=== PATIENT | female | born 1970 | race Caucasian/White ===

== ENCOUNTER → 2017-02-27 | Outpatient (REF) | payer MEDICAID ==
[~2017-02-27] MED LIST: ALBU8.5H11 INH; ASP325 PO; ASPI-760 PO; CET10 PO; CLIN300C99 PO; CLON1 PO; FLEC100T21 PO; FLEC150T14 PO; IBUP600T22 PO; LEVO150T72 PO; LEVO5TAB28 PO; LEVO75TA68 PO; LIOT25TA PO; MAG400 PO; MAGN250T25 PO; MET500 PO; OMEG-97 PO; SIM80 PO; [UNRECOGNIZED DRUG - CODE] PO
== END ==
LOC: ZZSENDIN 17:00
PROVIDERS: ATTEND Physician Assistant
DX: E03.9 Hypothyroidism, unspecified (principal)
CPT/HCPCS: 84436; 84439; 84443

== ENCOUNTER → 2017-08-05 | Outpatient (REF) | payer OTHER | LOC: ZZSENDIN 16:48 | PROVIDERS: ATTEND Physician Assistant | DX: Z11.59 Encounter for screening for other viral diseases (principal) | CPT/HCPCS: 80074; 86703 ==

== ENCOUNTER → 2017-12-15 | Outpatient (CLI) | payer MEDICAID ==
[2017-12-15 14:35] LABS: LDL CHOLESTEROL 109 mg/dl
== END ==
LOC: LAB 13:58
PROVIDERS: ATTEND Internal Medicine Cardiovascular Disease
DX: I48.0 Paroxysmal atrial fibrillation (principal); I10 Essential (primary) hypertension
CPT/HCPCS: 36415; 82040; 82247; 82310; 82374; 82435; 82465; 82565; 82947; 83718; 84075; 84132; 84155; 84295; 84450; 84460; 84478; 84520

== ENCOUNTER → 2018-04-26 | Outpatient (CLI) | payer MEDICAID ==
--- NOTE | 2018-04-26 17:39 | RADIOLOGY IMAGING REPORT ---
FACILITY: [facility] [place] PATIENT NAME: Usha Kiser : 1970 MR: [id number] V: [id number] EXAM DATE: ORDERING PHYSICIAN: CHRISTOPHER COLEY TECHNOLOGIST: Location: [facility] Patient: Usha Kiser : 1970 Visit/Account:[id number] Date of Sevice: 04/26/2018 THYROID HISTORY: Hypothyroidism COMPARISON: May 30, 2008 FINDINGS: SIZE: Right lobe: 5 x 1.6 x 1.6 cm Left lobe: 5 x 1 x 1.3 cm Isthmus: 4 mm PARENCHYMA: Heterogeneous NODULES: Right lobe: * None discrete. Left lobe: * None discrete. Isthmus: * None discrete. VASCULARITY: Within normal limits. ADDITIONAL FINDINGS: None. IMPRESSION: Thyroid gland appears mildly heterogeneous however discrete nodules are not demonstrated REFERENCE: 2015 [place] [employer] Management Guidelines for Adult Patients with Thyroid Nodules and D ifferentiated Thyroid Cancer: The [place] [employer] Guidelines Task Force on Thyroid Nodul es and Differentiated Thyroid Cancer. SONOGRAPHIC PATTERNS: * Benign: Purely cystic nodules (no solid component); estimated risk of malignancy <1 percent; no bi opsy recommended. * Very Low Suspicion: Spongiform or partially cystic nodules without any of the sonographic features described in low, intermediate, or high suspicion patterns; estimated risk of malignancy <3 percent; consider FNA at > 2 cm (Observation without FNA is also a reasonable option). * Low Suspicion: Isoechoic or hyperechoic solid nodule, or partially cystic nodule with eccentric so lid areas, without microcalcification, irregular margin or ETE (extra-thyroidal extension), or taller than wide shape; estimated risk of malignancy 5-10 percent; recommend FNA at >1.5 cm. * Intermediate Suspicion: Hypoechoic solid nodule with smooth margins without microcalcifications, E TE (extra-thyroidal extension), or taller than wide shape; estimated risk of malignancy 10-20 percent ; recommend FNA at > 1 cm. * High Suspicion: Solid hypoechoic nodule or solid hypoechoic component of a partially cystic nodule with one or more of the following features: irregular margins (infiltrative, microlobulated), microc alcifications, taller than wide shape, rim calcifications with small extrusive soft tissue component, evidence of ETE (extra-thyroidal extension); estimated risk of malignancy >70-90 percent; recommend FNA at > 1 cm. NOTES: * Although a sonographically suspicious subcentimeter thyroid nodule without evidence of extrathyroi jaden extension or sonographically suspicious lymph nodes may be observed with close sonographic follow -up rather than pursuing immediate FNA, patient age and preference may modify decision-making. A > 50% interval increase in nodule volume and/or development of new suspicious sonographic features are felt to be a valid reasons for potential re-aspiration of a nodule previously shown to have benig n FNA cytology. Report Dictated By: Marge Irving MD at 04/26/2018 5:34 PM Report E-Signed By: Marge Irving MD at 04/26/2018 5:35 PM WSN:[place]
--- NOTE | 2018-04-26 17:56 | RADIOLOGY IMAGING REPORT ---
FACILITY: [facility] - [place] PATIENT NAME: Usha Kiser : 1970 MR: [id number] V: [id number] EXAM DATE: ORDERING PHYSICIAN: CHRISTOPHER COLEY TECHNOLOGIST: Location: Patient: Usha Kiser : 1970 Visit/Account:[id number] Date of Sevice: 04/26/2018 Exam type: SOFT TISSUE HEAD NECK History: Palpable cervical lymph nodes, sister has non-Hodgkin's lymphoma Comparison: None. Findings: In zone two on the right there is a 1.4 x 0.8 x 0.5 cm lymph node In zone two on the left multiple small lymph nodes are present. The largest measures 1.25 x 0.8 x 0. 8 cm In zone four and the left there is a 1.1 x 0.9 x 0.6 cm lymph node IMPRESSION: 1. There multiple small lymph nodes in zone two on the left and one in zone two on the right not enl arged by measurement criteria There is one zone four lymph node on the left measuring 1.1 x 0.9 x 0.6 cm Report Dictated By: Marge Irving MD at 04/26/2018 5:49 PM Report E-Signed By: Marge Irving MD at 04/26/2018 5:53 PM WSN:[place]
== END ==
LOC: US 00:59
PROVIDERS: ATTEND Physician Assistant
DX: E03.9 Hypothyroidism, unspecified (principal); R59.0 Localized enlarged lymph nodes
CPT/HCPCS: 76536

== ENCOUNTER → 2018-05-18 | Outpatient (CLI) | payer MEDICAID ==
--- NOTE | 2018-05-28 16:00 | RADIOLOGY IMAGING REPORT ---
[place] [facility] [place] NAME: ELENITA BURTON : [id number] MR: [id number] V: [id number] EXAM DATE: [id number] ORDERING PHYSICIAN: CHRISTOPHER COLEY TECHNOLOGIST: Concha Luque PROCEDURE:BILATERAL DIGITAL SCREENING MAMMOGRAM WITH CAD ASSISTED INTERPRETATION & 3D TOMOSYNTHESIS COMPARISON:Prior mammogram 12/24/07. INDICATIONS:screening FINDINGS: Breast parenchyma is predominately fatty replaced. There are no mammographic findings concerning for malignancy. No significant interval change. DIAGNOSTIC CATEGORY 1--NEGATIVE. RECOMMENDATIONS: ROUTINE MAMMOGRAM AND CLINICAL EVALUATION IN 1 YR. IMPRESSION: BIRADS 1: Negative. Dictated by: Juan Loza on 05/28/2018 at 15:16 Transcribed by: CHAVEZ on 05/28/2018 at 15:23 Approved by: Juan Loza on 05/28/2018 at 15:59 [facility]
== END ==
LOC: MAMO 01:32
PROVIDERS: ATTEND Physician Assistant
DX: Z12.31 Encounter for screening mammogram for malignant neoplasm of breast (principal)
CPT/HCPCS: 77063; 77067